=== PATIENT | female | born 1945 | race Caucasian/White ===

== ENCOUNTER 2016-08-08 16:53 | Emergency (ER) | payer MEDICARE, OTHER ==
[2016-08-08 16:00] LABS: BASOPHILS 0.3 %; BASOPHILS ABSOLUTE 0.02 10/3/uL (0.0-0.16); EOSINOPHILS 1.4 %; HEMATOCRIT 37.1 % (36.0-48.0); HEMOGLOBIN 12.7 g/dL (12.0-16.0); IMMATURE GRANULOCYTES 0.3 %; IMMATURE GRANULOCYTES ABSOLUTE 0.02 10/3/uL (0.0-0.11); LYMPHOCYTES 17.4 %; LYMPHOCYTES ABSOLUTE 1.28 10/3/uL (0.67-4.30); MEAN CORPUSCULAR HEMOGLOB 31.4 pg (26.0-34.0); MEAN CORPUSCULAR VOLUME 91.8 fL (80-100); MEAN PLATELET VOLUME 10.8 fL (9.2-13.0); MONOCYTES 12.6 %; MONOCYTES ABSOLUTE 0.93 10/3/uL (0.21-1.20); NEUTROPHILS ABSOLUTE 5.01 10/3/uL (2.02-8.40); PLATELET COUNT 178 10/3/uL (150-400); RED CELL COUNT 4.04 10/6/uL (4.0-5.6); WHITE BLOOD CELLS 7.4 10/3/uL (4.5-10.5)
[2016-08-08 16:01] LABS: MANUAL DIFF NO %; MEAN CORPUS HGB CONC 34.2 g/dL (32.0-36.0); RBC DISTRIBUTION WIDTH 13.4 % (12.0-16.0)
[2016-08-08 16:18] LABS: A/G RATIO 1.1 (0.7-1.9); ALBUMIN 3.8 G/DL (3.5-5.0); ALKALINE PHOSPHATASE 89 U/L (45-117); BUN (BLOOD UREA NITROGEN) 15 MG/DL (6-23); CALCIUM, SERUM 9.1 MG/DL (8.5-10.4); CHLORIDE, SERUM 104 MMOL/L (96-112); CO2 (CARBON DIOXIDE) 29 MMOL/L (24-34); CREATININE 0.86 MG/DL (0.55-1.02); GFR AFRICAN AMERICAN 79 ML/MIN (>=60); GFR NON AFRICAN AMERICAN 68 ML/MIN (>=60); GLOBULIN 3.4 G/DL (2.5-4.1); GLUCOSE, SERUM 97 MG/DL (60-99); POTASSIUM, SERUM 3.8 MMOL/L (3.5-5.3); SGOT(AST) 24 U/L (5-40); SGPT(ALT) 23 U/L (5-65); SODIUM, SERUM 139 MMOL/L (135-148); TOTAL BILIRUBIN 0.7 MG/DL (0-1.2); TOTAL PROTEIN 7.2 G/DL (6.0-8.5)
[~2016-08-08 16:53] MED LIST: CELEBREX2 PO; CLARIT10 PO; FISH-EPA1000 MG PO; FOSAMAX PO; FOSAMAX70 MG PO; HALF81 PO; KLOR-CON M2020 MEQ PO; L40 PO; MELA3 PO; MULTIPLE VIT PO; NORCO1 TA1 PO; OS500+D PO; SYN1 PO
== END 2016-08-08 17:00 | disposition home or self-care (01) ==
LOC: ER 16:53
PROVIDERS: Nurse Practitioner
DX: L30.9 Dermatitis, unspecified (principal); Z95.5 Presence of coronary angioplasty implant and graft; Z88.2 Allergy status to sulfonamides; Z88.0 Allergy status to penicillin; Z79.899 Other long term (current) drug therapy; Z79.82 Long term (current) use of aspirin
CPT/HCPCS: 80053; 85025; 99283